=== PATIENT | female | born 1990 | race Caucasian/White ===

== ENCOUNTER 2022-01-20 10:50 | Emergency (ER) | payer OTHER, SELFPAY ==
--- NOTE | 2022-01-20 10:52 | ED.SKABFB ---
HPI - Skin/Abscess/Foreign Bdy General Chief complaint: Skin/Abscess/Foreign Body Stated complaint: Skin Sore Time Seen by Provider: 01/20/22 10:51 Source: patient Mode of arrival: ambulatory Limitations: no limitations History of Present Illness HPI narrative: Ms. Barajas is a 31-year-old female patient presenting to the clinic today with complaints of a sore on her left abdomen that she first noticed on Monday. She reports she tried to drain this and it had gotten bigger and more painful. Is unable to get any discharge from the sore and has been using warm compresses. She denies any fever or chills. She denies any history of MRSA. States she has gotten boils like this in her groin area before but they have gone away on their own. Related Data Allergies Allergy/AdvReac Type Severity Reaction Status Date / Time No Known Allergies Allergy Verified 01/20/22 11:05 Review of Systems Review of Systems: Pertinent positives per HPI. Patient denies any fever, chills, rash, headache, visual changes, dizziness, cough, runny nose, sore throat, shortness of breath, chest pain, palpitations, nausea, vomiting, diarrhea, constipation, abdominal pain, or any urinary issues. PMFSH Comments At the time of my signature, I reviewed and agree with the nursing past medical, surgical, social, and family history. There is no relevant family history pertinent to the patient complaint. Exam Narrative: General: Well-developed, well nourished, in no apparent distress Head: Normocephalic, atraumatic. Cardio: Regular rate and rhythm, s1 and s2 normal, no murmur appreciated. Resp: Clear to auscultation bilaterally, no rhonchi, rales, wheezing or rubs. Integumentary: Shell, warm, and dry, abscess with pustular center measuring 4.5 cm x 2 cm with induration and redness into the subcutaneous tissue, tender to palpation, incision and drainage performed and culture obtained and sent to lab. Course Course Emergency Course: Portions of this record may have been created with voice recognition software. Level of Care: Express Care Visit Vital Signs Vital signs: Vital signs reviewed Procedures Abscess I/D abdomen: Date of Incision: 01/20/22 Side (if applicable): left Sedation/analgesia: none Local Anesthetic: lidocaine 1% Amount of anesthesia used (mL): 3 Technique: incised with #11 blade Amount of fluid expressed (mL): 5 Irrigation: No Packing used?: none I&D Results: Pus and Blood Abcess I&D Additional Comments: Verbal consent obtained for incision and drainage. Risk and benefits explained and patient voiced understanding. Area was cleansed with betadine. Area was prepped and draped using sterile technique. 25 gauge needle was then used to instill 3 ml of lidocaine into the wound edges. Patient tolerated well and anesthesia was appropriate. An 11 blade scalpel was then used to make a 0.5cm incision over the abscess. 5ml of white bloody exudate expressed from cavity. Wound culture obtained and sent to lab. Patient tolerated procedure well. ALYSHA and 2x2 applied over wound and secured with bandaids. MDM - Skin/Abscess/Foreign Bdy MDM Narrative Medical decision making narrative: At the time of visit patient is resting comfortably on the exam table. She has a large abscess to the left abdominal wall. Incision and drainage was performed with patient consent and 5 mL of purulent discharge was expressed. We will place the patient on Bactrim DS 1 tablet twice a day for 10 days and have her follow-up with her PCP in 3 to 5 days if symptoms persist or sooner if they worsen. Supportive measures were discussed with the patient she voiced understanding of discharge instructions and agrees to treatment plan. Differential Diagnosis Differential diagnosis: Likely abscess of skin or subcutaneous tissue, cellulitis and insect bites Discharge Plan Discharge Clinical Impression: Abdominal wall absc
[2022-01-20 10:58] VITALS: BP 152/95; PULSE 95; RESP 16; TEMP 37.1; O2SAT 99
[2022-01-20 11:05] VITALS: BP 152/95; PULSE 95; RESP 16; TEMP 37.1; O2SAT 99
== END 2022-01-20 11:39 | disposition home or self-care (01) ==
PROVIDERS: Emergency Provider Nurse Practitioner Family
DX: L02.211 Cutaneous abscess of abdominal wall (principal); B95.62 Methicillin resistant Staphylococcus aureus infection as the cause of diseases classified elsewhere
CPT/HCPCS: 10060; 87070; 87147; 87181; 87186; 87205; 99203; G0463